=== PATIENT | male | born 2000 | race African-American/Black ===

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

== ENCOUNTER 2021-04-02 23:37 | Emergency (ER) | payer MEDICAID ==
[~2021-04-02] VITALS: Ht 190.5 cm; Wt 81.6 kg
[2021-04-03 00:20] VITALS: BP 135/99
== END 2021-04-03 04:04 | disposition left against medical advice (07) ==
LOC: ER 23:37
DX: S09.93XA Unspecified injury of face, initial encounter (principal); Z53.21 Procedure and treatment not carried out due to patient leaving prior to being seen by health care provider; X58.XXXA Exposure to other specified factors, initial encounter; Y93.89 Activity, other specified; Y92.89 Other specified places as the place of occurrence of the external cause; Y99.8 Other external cause status